=== PATIENT | female | born 1945 ===

== ENCOUNTER 2022-07-06 16:00 | Outpatient (REF) | payer MEDICARE, SELFPAY ==
[2022-07-07 14:31] LABS: Influenza A PCR NEGATIVE (Negative); Influenza B PCR NEGATIVE (Negative); Resp Syncy Virus RNA Qual PCR NEGATIVE (Negative); SARS COV2 PCR INHOUSE NEGATIVE (Negative)
== END 2022-07-06 16:01 | disposition home or self-care (01) ==
LOC: HO.LAB 16:00
PROVIDERS: Visit Provider Nurse Practitioner Family
DX: Z20.822 Contact with and (suspected) exposure to COVID-19 (principal)
CPT/HCPCS: 0241U